=== PATIENT | male | born 1995 | race Caucasian/White ===

== ENCOUNTER 2021-02-16 19:46 | Inpatient (IN) | payer BC, OTHER ==
[~2021-02-16] VITALS: Ht 177.8 cm; Wt 59.6 kg
[2021-02-16] MEDS ORDERED: ACETAMINOPHEN 325 MG TAB PO ONE (20:15)
[2021-02-16 20:35] LABS: Basophils # (auto) 0 10 ^3/uL (0-0.2); Basophils % (auto) 0.2 % (0.0-2.0); Eosinophils # (auto) 0 10 ^3/uL (0-0.8); Hematocrit 44.1 % (41.0-53.0); Hemoglobin 15.4 g/dL (13.5-17.5); Lymphocytes # (auto) 0.7 10 ^3/uL (0.4-5.4); Lymphocytes % (auto) 7.6 % (10.0-50.0); Mean Corpuscular Hemoglobin 29.8 pg (28.0-32.0); Mean Corpuscular Volume 85.3 fL (80.0-100.0); Monocytes # (auto) 0.6 10 ^3/uL (0-1.3); Monocytes % (auto) 6.3 % (0.0-12.0); Neutrophils % (auto) 85.9 % (37.0-80.0); Red Blood Cells 5.18 10^6/uL (4.5-5.90); Red Cell Distribution Width 14.1 % (11.8-14.3); White Blood Cell 9.3 10^3/uL (4.4-10.8)
[2021-02-16 20:50] LABS: Albumin 3.1 g/dL (3.4-5.0); Anion Gap 8 (5-15); Blood Urea Nitrogen 10 mg/dL (7-18); Calcium 8.4 mg/dL (8.5-10.1); Carbon Dioxide 25 mmol/L (21-32); Chloride 102 mmol/L (98-107); Glucose 134 mg/dL (74-106); Potassium 3.2 mmol/L (3.5-5.1); Sodium 135 mmol/L (136-145)
[2021-02-16 20:56] LABS: Alanine Aminotransferase 278 U/L (16-61); Alkaline Phosphatase 58 U/L (45-117); Aspartate Aminotransferase 227 U/L (15-37); BUN/Creatinine Ratio 11.2; Bilirubin, Total 0.7 mg/dL (0.2-1.0); GFR African American 135 mL/min; GFR Non-African American 112 mL/min; Total Protein 7.4 g/dL (6.4-8.2)
[2021-02-16] MEDS ORDERED: POTASSIUM CHL 20 Meq TABLET PO ONE (22:15)
[2021-02-16] MEDS ORDERED: ENOXAPARIN SOD 100 MG/1 ML SYRINGE SC ONE (22:15)
[2021-02-16] MEDS ORDERED: AZITHROMYCIN 500MG/ 250ML 250 ML IV ONE (22:15)
[2021-02-16] MEDS ORDERED: cefTRIAXone 1GM/50ML D5W 50 ML IV ONE (22:15)
[2021-02-16] MEDS ORDERED: ENOXAPARIN SOD 40 MG/0.4 ML SYRINGE SC ONE (22:27)
[2021-02-16] MEDS ORDERED: ACETAMINOPHEN 500 MG TAB PO PRN (23:45)
[2021-02-16] MEDS ORDERED: ONDANSETRON HCL 4 MG/2 ML VIAL IV PRN (23:45)
[2021-02-16] MEDS ORDERED: DOCUSATE SOD 100 MG CAP PO PRN (23:45)
[2021-02-16] MEDS ORDERED: NITROGLYCERIN 0.4 MG SL TAB SL PRN (23:45)
[2021-02-16] MEDS ORDERED: MORPHINE SULFATE INJECTION 2 MG/ML SYRG IV PRN (23:45)
[2021-02-17] MEDS: SODIUM CHLORIDE 0.9% 1,000 ML IV SCH ×2 (01:13→16:30)
[2021-02-17] MEDS: HYDROcodone-ACET 5/325MG TAB PO PRN ×3 (05:39→21:31)
[2021-02-17 07:24] LABS: Basophils # (auto) 0 10 ^3/uL (0-0.2); Eosinophils # (auto) 0 10 ^3/uL (0-0.8); Hematocrit 43.5 % (41.0-53.0); Lymphocytes # (auto) 0.9 10 ^3/uL (0.4-5.4); Lymphocytes % (auto) 9.6 % (10.0-50.0); Mean Corpuscular Hemoglobin 29.8 pg (28.0-32.0); Mean Corpuscular Hgb Conc. 34.6 g/dL (32.0-36.0); Mean Corpuscular Volume 86.1 fL (80.0-100.0); Monocytes # (auto) 0.6 10 ^3/uL (0-1.3); Monocytes % (auto) 6.5 % (0.0-12.0); Neutrophils # (auto) 7.6 10 ^3/uL (1.6-8.6); Neutrophils % (auto) 83.9 % (37.0-80.0); Nucleated Red Blood Cells % 0.1 %; Red Blood Cells 5.05 10^6/uL (4.5-5.90); Red Cell Distribution Width 13.9 % (11.8-14.3); White Blood Cell 9.1 10^3/uL (4.4-10.8)
[2021-02-17 07:47] LABS: Albumin 2.9 g/dL (3.4-5.0); Calcium 8.3 mg/dL (8.5-10.1); Magnesium 2.3 mg/dL (1.6-2.6); Potassium 3.5 mmol/L (3.5-5.1)
[2021-02-17 07:52] LABS: BUN/Creatinine Ratio 11.8; Bilirubin, Total 0.6 mg/dL (0.2-1.0); Total Protein 7.1 g/dL (6.4-8.2)
[2021-02-17] MEDS: ASPirin 81 mg TAB PO SCH (09:55)
[2021-02-17] MEDS: MULTIPLE VITAMIN TAB PO SCH (09:55)
[2021-02-17] MEDS: ZINC SULFATE 220mg CAP or TAB PO SCH (09:55)
[2021-02-17] MEDS: DexAMETHasone SOD PHOS 10MG/1ML VIAL INJ IV SCH (09:55)
[2021-02-17] MEDS: ASCORBIC ACID 1,000 MG TAB PO SCH (09:55)
[2021-02-17] MEDS: CHOLECALCIFEROL (VITD3) 2,000 UNIT CAP/TAB PO SCH (09:56)
[2021-02-17] MEDS: ENOXAPARIN SOD 40 MG/0.4 ML SYRINGE SC SCH ×2 (09:56→21:48)
[2021-02-17] MEDS ORDERED: DOXYCYCLINE 100MG/250ML 250 ML IV SCH (10:00)
[2021-02-17] MEDS: BUDESONIDE (INHALATION) 180 MCG IH IN SCH ×2 (10:00→21:48)
[2021-02-17] MEDS ORDERED: REMDESIVIR PER PHARMACY 0 ML IV SCH (12:00)
[2021-02-17 12:30] VITALS: BP 120/81
[2021-02-17 13:00] VITALS: BP 115/71
[2021-02-17] MEDS ORDERED: REMDESIVIR 200 MG in NS 210ml LOADING DOSE ADULT IV ONE (13:00)
[2021-02-17] MEDS ORDERED: POTASSIUM CHL 20 Meq TABLET PO ONE (16:00)
[2021-02-17] MEDS ORDERED: FUROSEMIDE 40 MG/4 ML VIAL IV ONE (16:00)
[2021-02-17] MEDS ORDERED: PIPERACILLIN-TAZOB 2.25GM 50 ML IV ONE (16:00)
[2021-02-17] MEDS: PIPERACILLIN-TAZOB 3.375GM 100 ML IV SCH ×2 (16:30→21:35)
[2021-02-17 17:00] VITALS: BP 142/103
[2021-02-17] MEDS: ALBUTEROL SULF HFA 90MCG INH 200DOSE IN PRN (21:48)
[2021-02-17 21:51] VITALS: BP 142/88
[2021-02-18] MEDS: HYDROcodone-ACET 5/325MG TAB PO PRN ×2 (04:39→09:27)
[2021-02-18 05:00] VITALS: BP 131/76
[2021-02-18] MEDS: PIPERACILLIN-TAZOB 3.375GM 100 ML IV SCH ×3 (05:55→22:18)
[2021-02-18 06:46] LABS: Potassium 3.5 mmol/L (3.5-5.1)
[2021-02-18 06:55] LABS: Albumin 2.6 g/dL (3.4-5.0); BUN/Creatinine Ratio 14.9; Bilirubin, Total 0.6 mg/dL (0.2-1.0); Calcium 8.1 mg/dL (8.5-10.1); Total Protein 6.8 g/dL (6.4-8.2)
[2021-02-18] MEDS: ALBUTEROL SULF HFA 90MCG INH 200DOSE IN PRN ×2 (07:20→21:08)
[2021-02-18] MEDS: BUDESONIDE (INHALATION) 180 MCG IH IN SCH ×2 (07:20→21:08)
[2021-02-18 08:00] VITALS: BP 136/84
[2021-02-18] MEDS: SODIUM CHLORIDE 0.9% 1,000 ML IV SCH (09:05)
[2021-02-18] MEDS: FUROSEMIDE 40 MG/4 ML VIAL IV SCH (09:25)
[2021-02-18] MEDS: ZINC SULFATE 220mg CAP or TAB PO SCH (09:25)
[2021-02-18] MEDS: DexAMETHasone SOD PHOS 10MG/1ML VIAL INJ IV SCH (09:25)
[2021-02-18] MEDS: ASPirin 81 mg TAB PO SCH (09:25)
[2021-02-18] MEDS: CHOLECALCIFEROL (VITD3) 2,000 UNIT CAP/TAB PO SCH (09:26)
[2021-02-18] MEDS: ENOXAPARIN SOD 40 MG/0.4 ML SYRINGE SC SCH ×2 (09:26→22:18)
[2021-02-18] MEDS: ASCORBIC ACID 1,000 MG TAB PO SCH (09:26)
[2021-02-18] MEDS: MULTIPLE VITAMIN TAB PO SCH (09:26)
[2021-02-18] MEDS: POTASSIUM CHL 20 Meq TABLET PO SCH (09:26)
[2021-02-18] MEDS: TOCILIZUMAB 400 MG in SODIUM CHL 0.9% 80 ML IV SCH (11:29)
[2021-02-18 12:00] VITALS: BP 125/86
[2021-02-18 12:20] LABS: Hepatitis B Surface Antibody Negative
[2021-02-18 12:56] LABS: Hepatitis A Total Antibody Positive
[2021-02-18 13:41] LABS: Hepatitis B Core Total AB Negative; Hepatitis B Surface Antigen Negative (Negative); Hepatitis C Antibody Negative (Negative)
[2021-02-18] MEDS: REMDESIVIR 100mg 100 MG in SODIUM CHL 0.9% 230 ML IV SCH (15:07)
[2021-02-18 15:58] VITALS: BP 125/78
[2021-02-18 22:00] VITALS: BP 149/91
[2021-02-18] MEDS: FAMOTIDINE 20 MG TAB PO SCH (22:18)
[2021-02-19 05:00] VITALS: BP 118/54
[2021-02-19] MEDS: PIPERACILLIN-TAZOB 3.375GM 100 ML IV SCH ×3 (05:57→21:53)
[2021-02-19 07:02] LABS: INR 1.09 (0.9-1.15)
[2021-02-19 07:07] LABS: Calcium 8.2 mg/dL (8.5-10.1); Magnesium 2.6 mg/dL (1.6-2.6); Potassium 3.3 mmol/L (3.5-5.1)
[2021-02-19 07:18] LABS: Albumin 2.5 g/dL (3.4-5.0); Bilirubin, Direct 0.3 mg/dL (0-0.2); Bilirubin, Total 0.7 mg/dL (0.2-1.0); CRP High Sensitivity 4.78 mg/dL (< 0.3); Total Protein 6.6 g/dL (6.4-8.2)
[2021-02-19 08:29] VITALS: BP 124/68
[2021-02-19] MEDS: DexAMETHasone SOD PHOS 10MG/1ML VIAL INJ IV SCH (09:17)
[2021-02-19] MEDS: POTASSIUM CHL 20 Meq TABLET PO SCH (09:18)
[2021-02-19] MEDS: ASPirin 81 mg TAB PO SCH (09:18)
[2021-02-19] MEDS: ZINC SULFATE 220mg CAP or TAB PO SCH (09:18)
[2021-02-19] MEDS: FAMOTIDINE 20 MG TAB PO SCH ×2 (09:19→21:53)
[2021-02-19] MEDS: CHOLECALCIFEROL (VITD3) 2,000 UNIT CAP/TAB PO SCH (09:19)
[2021-02-19] MEDS: MULTIPLE VITAMIN TAB PO SCH (09:19)
[2021-02-19] MEDS: ASCORBIC ACID 1,000 MG TAB PO SCH (09:19)
[2021-02-19] MEDS: FUROSEMIDE 40 MG/4 ML VIAL IV SCH (09:22)
[2021-02-19] MEDS ORDERED: ENOXAPARIN SOD 60 MG/0.6 ML SYRINGE SC SCH (10:00)
[2021-02-19] MEDS ORDERED: POTASSIUM CHL 20 Meq TABLET PO ONE (11:45)
[2021-02-19 12:07] VITALS: BP 122/67
[2021-02-19] MEDS: TOCILIZUMAB 400 MG in SODIUM CHL 0.9% 80 ML IV SCH (13:43)
[2021-02-19] MEDS: ALBUTEROL SULF HFA 90MCG INH 200DOSE IN PRN ×2 (13:56→22:00)
[2021-02-19] MEDS: BUDESONIDE (INHALATION) 180 MCG IH IN SCH ×2 (13:56→22:00)
[2021-02-19] MEDS: REMDESIVIR 100mg 100 MG in SODIUM CHL 0.9% 230 ML IV SCH (14:00)
[2021-02-19 16:56] VITALS: BP 121/61
[2021-02-19] MEDS: ENOXAPARIN SOD 40 MG/0.4 ML SYRINGE SC SCH (21:53)
[2021-02-19 22:00] VITALS: BP 121/77
[2021-02-20 02:52] VITALS: BP 121/77
[2021-02-20 05:00] VITALS: BP 113/61
[2021-02-20] MEDS: PIPERACILLIN-TAZOB 3.375GM 100 ML IV SCH (05:48)
[2021-02-20 06:04] LABS: Basophils # (auto) 0.1 10 ^3/uL (0-0.2); Basophils % (auto) 1.1 % (0.0-2.0); Eosinophils # (auto) 0 10 ^3/uL (0-0.8); Hematocrit 44.4 % (41.0-53.0); Hemoglobin 15.3 g/dL (13.5-17.5); Lymphocytes # (auto) 2.1 10 ^3/uL (0.4-5.4); Lymphocytes % (auto) 22.4 % (10.0-50.0); Mean Corpuscular Hemoglobin 29.6 pg (28.0-32.0); Mean Corpuscular Hgb Conc. 34.4 g/dL (32.0-36.0); Mean Corpuscular Volume 86.1 fL (80.0-100.0); Monocytes # (auto) 0.9 10 ^3/uL (0-1.3); Monocytes % (auto) 9.7 % (0.0-12.0); Neutrophils # (auto) 6.2 10 ^3/uL (1.6-8.6); Neutrophils % (auto) 66.8 % (37.0-80.0); Nucleated Red Blood Cells % 0.2 %; Red Blood Cells 5.16 10^6/uL (4.5-5.90); Red Cell Distribution Width 13.6 % (11.8-14.3); White Blood Cell 9.3 10^3/uL (4.4-10.8)
[2021-02-20 06:20] LABS: Albumin 2.7 g/dL (3.4-5.0); Calcium 8.4 mg/dL (8.5-10.1); Potassium 3.5 mmol/L (3.5-5.1)
[2021-02-20 06:29] LABS: BUN/Creatinine Ratio 22.7; Bilirubin, Total 0.8 mg/dL (0.2-1.0); CRP High Sensitivity 2.07 mg/dL (< 0.3); Total Protein 6.8 g/dL (6.4-8.2)
[2021-02-20] MEDS: BUDESONIDE (INHALATION) 180 MCG IH IN SCH ×2 (06:53→21:22)
[2021-02-20] MEDS: ALBUTEROL SULF HFA 90MCG INH 200DOSE IN PRN ×2 (06:53→23:15)
[2021-02-20 09:00] VITALS: BP 120/68
[2021-02-20] MEDS: FAMOTIDINE 20 MG TAB PO SCH ×2 (10:45→21:03)
[2021-02-20] MEDS: ZINC SULFATE 220mg CAP or TAB PO SCH (10:45)
[2021-02-20] MEDS: FUROSEMIDE 40 MG/4 ML VIAL IV SCH (10:45)
[2021-02-20] MEDS: ASCORBIC ACID 1,000 MG TAB PO SCH (10:45)
[2021-02-20] MEDS: POTASSIUM CHL 20 Meq TABLET PO SCH (10:45)
[2021-02-20] MEDS: ASPirin 81 mg TAB PO SCH (10:45)
[2021-02-20] MEDS: MULTIPLE VITAMIN TAB PO SCH (10:45)
[2021-02-20] MEDS: CHOLECALCIFEROL (VITD3) 2,000 UNIT CAP/TAB PO SCH (10:45)
[2021-02-20] MEDS: ENOXAPARIN SOD 40 MG/0.4 ML SYRINGE SC SCH ×2 (10:45→21:03)
[2021-02-20] MEDS ORDERED: AZITHROMYCIN 250 MG TAB PO ONE (11:15)
[2021-02-20] MEDS ORDERED: cefTRIAXone 1GM/50ML D5W 50 ML IV ONE (11:15)
[2021-02-20] MEDS: DexAMETHasone SOD PHOS 10MG/1ML VIAL INJ IV SCH (12:33)
[2021-02-20 13:00] VITALS: BP 113/80
[2021-02-20] MEDS: REMDESIVIR 100mg 100 MG in SODIUM CHL 0.9% 230 ML IV SCH (15:00)
[2021-02-20 17:00] VITALS: BP 115/61
[2021-02-20 22:00] VITALS: BP 130/73
[2021-02-21 05:00] VITALS: BP 136/73
[2021-02-21 06:29] LABS: Potassium 3.7 mmol/L (3.5-5.1)
[2021-02-21 06:43] LABS: BUN/Creatinine Ratio 22.6; Bilirubin, Direct 0.4 mg/dL (0-0.2); Bilirubin, Total 0.9 mg/dL (0.2-1.0); CRP High Sensitivity 1.19 mg/dL (< 0.3); Calcium 8.6 mg/dL (8.5-10.1); Magnesium 2.6 mg/dL (1.6-2.6)
[2021-02-21] MEDS: BUDESONIDE (INHALATION) 180 MCG IH IN SCH ×2 (07:46→20:08)
[2021-02-21] MEDS: ALBUTEROL SULF HFA 90MCG INH 200DOSE IN PRN ×2 (07:47→20:08)
[2021-02-21 09:00] VITALS: BP 128/68
[2021-02-21] MEDS: cefTRIAXone 1GM/50ML D5W 50 ML IV SCH (10:01)
[2021-02-21] MEDS: DexAMETHasone SOD PHOS 10MG/1ML VIAL INJ IV SCH (10:01)
[2021-02-21] MEDS: FUROSEMIDE 40 MG/4 ML VIAL IV SCH (10:01)
[2021-02-21] MEDS: ASPirin 81 mg TAB PO SCH (10:02)
[2021-02-21] MEDS: POTASSIUM CHL 20 Meq TABLET PO SCH (10:02)
[2021-02-21] MEDS: ZINC SULFATE 220mg CAP or TAB PO SCH (10:02)
[2021-02-21] MEDS: MULTIPLE VITAMIN TAB PO SCH (10:02)
[2021-02-21] MEDS: ASCORBIC ACID 1,000 MG TAB PO SCH (10:03)
[2021-02-21] MEDS: FAMOTIDINE 20 MG TAB PO SCH ×2 (10:03→21:16)
[2021-02-21] MEDS: CHOLECALCIFEROL (VITD3) 2,000 UNIT CAP/TAB PO SCH (10:03)
[2021-02-21] MEDS: ENOXAPARIN SOD 40 MG/0.4 ML SYRINGE SC SCH ×2 (10:04→21:17)
[2021-02-21] MEDS: AZITHROMYCIN 250 MG TAB PO SCH (10:04)
[2021-02-21 13:00] VITALS: BP 122/70
[2021-02-21] MEDS: REMDESIVIR 100mg 100 MG in SODIUM CHL 0.9% 230 ML IV SCH (14:30)
[2021-02-21 17:00] VITALS: BP 126/72
[2021-02-21 22:30] VITALS: BP 114/68
[2021-02-22 05:07] VITALS: BP 126/83
[2021-02-22] MEDS: BUDESONIDE (INHALATION) 180 MCG IH IN SCH (06:55)
[2021-02-22] MEDS: ALBUTEROL SULF HFA 90MCG INH 200DOSE IN PRN (06:55)
[2021-02-22 06:58] LABS: CRP High Sensitivity 0.68 mg/dL (< 0.3); Magnesium 2.7 mg/dL (1.6-2.6)
[2021-02-22] MEDS: DexAMETHasone SOD PHOS 10MG/1ML VIAL INJ IV SCH (08:29)
[2021-02-22] MEDS: cefTRIAXone 1GM/50ML D5W 50 ML IV SCH (08:29)
[2021-02-22] MEDS: FUROSEMIDE 40 MG/4 ML VIAL IV SCH (08:31)
[2021-02-22] MEDS: ZINC SULFATE 220mg CAP or TAB PO SCH (08:32)
[2021-02-22] MEDS: POTASSIUM CHL 20 Meq TABLET PO SCH (08:32)
[2021-02-22] MEDS: MULTIPLE VITAMIN TAB PO SCH (08:32)
[2021-02-22] MEDS: ASCORBIC ACID 1,000 MG TAB PO SCH (08:33)
[2021-02-22] MEDS: FAMOTIDINE 20 MG TAB PO SCH (08:33)
[2021-02-22] MEDS: CHOLECALCIFEROL (VITD3) 2,000 UNIT CAP/TAB PO SCH (08:33)
[2021-02-22] MEDS: AZITHROMYCIN 250 MG TAB PO SCH (08:33)
[2021-02-22] MEDS: ENOXAPARIN SOD 40 MG/0.4 ML SYRINGE SC SCH (08:34)
[2021-02-22] MEDS: ASPirin 81 mg TAB PO SCH (08:36)
[2021-02-22 09:00] VITALS: BP 125/70
[2021-02-22] MEDS ORDERED: ZINC220T6 PO (11:36)
[2021-02-22] MEDS ORDERED: BUDE2SUS3 IN (11:36)
[2021-02-22] MEDS ORDERED: ALBUAER3 IN (11:36)
[2021-02-22] MEDS ORDERED: ASCO10003 PO (11:36)
[2021-02-22] MEDS ORDERED: DEX4T PO (11:36)
[2021-02-22] MEDS ORDERED: FAMO20TA10 PO (11:36)
[2021-02-22] MEDS ORDERED: ASPI-378 PO (11:36)
[2021-02-22] MEDS ORDERED: DOXY-286 PO (11:36)
[2021-02-22] MEDS ORDERED: CHOL20007 PO (11:36)
[2021-02-22 13:00] VITALS: BP 123/70
[2021-02-22 13:59] VITALS: BP 123/70
[2021-02-22 17:53] VITALS: BP 129/78
== END 2021-02-22 18:50 | disposition home or self-care (01) | DRG 871 ==
LOC: ER 19:48 → TELE 23:38 → TELE-EAST 02-17 12:12
PROVIDERS: ADMIT Nurse Practitioner Family; ATTEND Internal Medicine
PROC: XW033E5 Introduction of Remdesivir Anti-infective into Peripheral Vein, Percutaneous Approach, New Technology Group 5 (ICD-10-PCS; principal; 2021-02-17)
PROC: XW033H5 Introduction of Tocilizumab into Peripheral Vein, Percutaneous Approach, New Technology Group 5 (ICD-10-PCS; 2021-02-18)
DX: A41.89 Other specified sepsis (principal); J12.82 Pneumonia due to coronavirus disease 2019; J96.01 Acute respiratory failure with hypoxia; U07.1 COVID-19; E66.01 Morbid (severe) obesity due to excess calories; E87.6 Hypokalemia; R73.9 Hyperglycemia, unspecified; R65.20 Severe sepsis without septic shock; D89.839 Cytokine release syndrome, grade unspecified; R74.8 Abnormal levels of other serum enzymes; Z53.29 Procedure and treatment not carried out because of patient's decision for other reasons; Z28.3 Underimmunization status
CPT/HCPCS: 36415; 36600; 71045; 71275; 80053; 80076; 82306; 82728; 82805; 83036; 83605; 83615; 83735; 84132; 84443; 84484; 85025; 85379; 85610; 86038; 86141; 86704; 86706; 86708; 86803; 87040; 87340; 87426; 93005; 94640; 96365; 96367; 96372; G0378; J0696; J1100; J2543; J3490

== ENCOUNTER 2025-05-13 11:27 | Emergency (ER) | payer BC, MEDICAID ==
[~2025-05-13] VITALS: Ht 175.3 cm; Wt 114.7 kg
[~2025-05-13 11:27] MED LIST: ALBUAER3 IN; ASCO10003 PO; BUDE2SUS3 IN; CHOL20007 PO; DEX4T PO; DOXY-286 PO; ZINC220T6 PO
[2025-05-13 11:34] VITALS: BP 130/56; PULSE 100; RESP 18; TEMP 97.9; O2SAT 97
--- NOTE | 2025-05-13 13:30 | ED.PDOC ---
History of Present Illness HPI Comments 30 y/o obese M presents with mother for c/c of left knee pain. Patient endorses on sudden onset of pain and suspects on dislocating his left knee joint after bearing his weight on his left leg different following a recent left ankle injury. Notable history of multiple joint dislocations and bone cysts. He denies any fall or injuries alongside any further acute symptoms. Chief Complaint: Lower Extremity Time Seen by MD: 01:20 Reviewed Notes: Nurses Notes, Medications, Allergies Allergies: Coded Allergies: NO KNOWN ALLERGIES (Unverified , 02/16/21) Home Meds Active Scripts Doxycycline Hyclate (DOXYCYCLINE HYCLATE) 100 Mg Tab, 1 TAB PO BID for 7 Days, #14 TAB Prov:SAMSON MORA MD 02/22/21 Cholecalciferol (VITAMIN D3) 2,000 Unit Tab, 1 TAB PO DAILY for 30 Days, #30 TAB Prov:SAMSON MORA MD 02/22/21 Zinc Sulfate (Zinc Sulfate) 220 Mg Tab, 220 MG PO DAILY for 14 Days, #14 TAB Prov:SAMSON MORA MD 02/22/21 Dexamethasone (Decadron) 4 Mg Tb, 1 TAB PO DAILY, #8 TAB Decadron 4mg po daily for 5 days followed by 2mg po daily for 5 days Prov:SAMSON MORA MD 02/22/21 Budesonide (Inhalation) (Budesonide) 1 Mg/2 Ml Greta, 360 MCG IN BID for 14 Days, #1 INHALER Prov:SAMSON MORA MD 02/22/21 Albuterol Sulfate (VENTOLIN MDI) 90 Mcg Ih, 90 MCG IN Q6HP PRN for 30 Days, #1 INH Prov:SAMSON MORA MD 02/22/21 Ascorbic Acid (Gnp Vitamin C W/Ana Hips) 1,000 Mg Tab, 1000 MG PO DAILY for 30 Days, #30 TAB Prov:SAMSON MORA MD 02/22/21 Information Source: Patient Mode of Arrival: Ambulatory Severity: Moderate Timing: Hours Duration: Since onset Prehospital treatment: None Past Medical History Past Medical History (Other): bone cysts multiple joint dislocations Surgical History: Denies all surgeries Family History Family History: Unknown Social History Smoker: Non-Smoker Alcohol: Denies ETOH Use Drugs: Denies Drug Use Lives In: Home All Other Systems: Reviewed and Negative (Comprehensive review of systems are negative unless stated in HPI) Physical Exam General Appearance: No Apparent Distress, Obese HEENT: Normal ENT Inspection, Pharynx Normal, TMs Normal Neck: Full Range of Motion, Non-Tender, Normal, Normal Inspection Respiratory: Chest Non-Tender, Lungs Clear, No Accessory Muscle Use, No Respiratory Distress, Normal Breath Sounds Cardiovascular: No Edema, No JVD, No Murmur, No Gallop, Normal Peripheral Pulses, Regular Rate/Rhythm Breast Exam: Deferred Gastrointestinal: No Organomegaly, Non Tender, No Pulsatile Mass, Normal Bowel Sounds, Soft Genitalia: Deferred Pelvic: Deferred Rectal: Deferred Extremities: No calf tenderness, Normal capillary refill, Normal inspection, Normal range of motion, No pedal edema, Tender (left knee ) Musculoskeletal : Apperance: Normal Neurologic: Alert, logistics vice president II-XII nml as Tested, No Motor Deficits, Normal Affect, Normal Mood, No Sensory Deficits Cerebellar Function: Normal Reflexes: Normal Skin: Dry, Normal Color, Warm Lymphatic: No Adenopathy Was a procedure done? Was a procedure done?: No Differential Dx Considerations may include: dislocation, fractures, contusions, sprain, strain, among others X-Ray, Labs, Meds, VS Vital Signs Date Time Temp Pulse Resp B/P (MAP) Pulse Ox O2 Delivery O2 Flow Rate FiO2 05/13/25 11:34 97.9 100 18 130/56 97 97.9 Time of 1ST Reevaluation: 01:50 Reevaluation 1ST: Unchanged Patient Education/Counseling: Diagnosis, Treatment, Need For Follow Up Family Education/Counseling: Diagnosis, Treatment, Need For Follow Up SEPSIS Sepsis Screen Date sepsis recognized/suspect: May 13, 2025 Time Sepsis recognized/suspect: 1138 Recent Procedure: No On Antibiotic Therapy: No Respiratory Rate >20: No Heart Rate >90: Yes Temp<36 C (96.8 F) or >38.3 C: No SBP <90 or MAP <65 mmHG: No New Acute Mental Status Change: No Is the patient on CPAP, BIPAP,: No Physician Orders L Knee 3v Xray (05/13/25 13:16) Vital Signs Date Time Temp Pulse Resp B/P (MAP) Pulse Ox O2 Delivery O2 Flow Rate FiO2 12/6/25 11:34 97.9 100 18 130/56 97 97.9 Departure 1 Departure Time of Disposition: 14:16 (Patient likely with a knee sprain and a patellar dislocation that is spontaneously reduced. We will discharge patient home with a knee immobilizer and outpatient orthopedic follow up) Impression: Primary Impression: Left knee sprain Additional Impression: Dislocation, patella closed Disposition: HOME / SELF CARE / HOMELESS Condition: Stable Referrals: NOVA NORTON MD Additional Instructions: You likely had dislocated her patella. Fortunately it has spontaneously reduced. Your x-rays are otherwise benign. You were referred to orthopedics. Please call for an appointment Your placed on a knee immobilizer please wear for comfort For pain you can take the followinam: Ibuprofen 400mg with food Noon: Acetaminophen 1000mg 4pm: Ibuprofen 400mg with food 8pm: Acetaminophen 1000mg You should follow up with your regular doctor within one week to ensure you are doing better. If your symptoms worsen or you have any other concerns then please return to the ER. Discharged With: Relative (Mother) Critical Care Note Critical Care Time?: No Stability Stability form required: No Heart Score Heart Score: Heart Score Response (Comments) Value History N/A 0 EKG N/A 0 Age N/A 0 Risk Factors N/A 0 Troponin N/A 0 Total 0 I personally scribed for RUDDY CARABALLO MD ([email or web address]) on 05/13/25 at 13:30. Electronically submitted by Meng Ho ([email or web address]). RUDDY CARABALLO MD May 13, 2025 13:30
--- NOTE | 2025-05-13 13:55 | DVH ---
CLINICAL HISTORY: left knee pain TECHNIQUE: 3 views of the left knee were obtained. COMPARISON: None FINDINGS: No acute fracture or dislocation is seen. No joint effusion is evident. There are no significant degenerative changes. IMPRESSION: NO ACUTE RADIOGRAPHIC ABNORMALITY OF THE LEFT KNEE.
== END 2025-05-13 15:06 | disposition home or self-care (01) ==
LOC: ER 11:27
DX: S83.005A Unspecified dislocation of left patella, initial encounter (principal); X58.XXXA Exposure to other specified factors, initial encounter; Y93.89 Activity, other specified; Y92.89 Other specified places as the place of occurrence of the external cause; Y99.8 Other external cause status
CPT/HCPCS: 29505; 73562